=== PATIENT | male | born 1955 | race Caucasian/White ===

== ENCOUNTER 2020-12-15 13:15 | Outpatient (REF) | payer MEDICARE, SELFPAY ==
--- NOTE | 2020-12-15 | US_ITS ---
EXAMINATION: US EXTRACRANIAL CAROTID DUPLEX, BILATERAL CLINICAL INFORMATION: Multiple cerebral infarcts. COMPARISON: None TECHNIQUE: Real-time ultrasound and Doppler techniques (integrating B-mode 2-D vascular images, Doppler spectral analysis and color-flow Doppler imaging) were utilized to interrogate the extracranial carotid arteries, the vertebral arteries and proximal subclavian arteries bilaterally. The degree of stenosis is determined by criteria similar to NASCET. FINDINGS: Right Side: 1. There is a small amount of atherosclerotic plaque seen in the bifurcation/proximal ICA region. 2. The common carotid artery PSV proximally is 199 cm/s and distally 141 cm/s. 3. The proximal internal carotid artery velocities are 163 cm/s systolic and 22.6 cm/s diastolic. 4. The proximal external carotid artery PSV is 179 cm/s. 5. The vertebral artery shows antegrade flow. 6. The subclavian artery waveforms are normal, the velocity is elevated at 260 cm/s. Left Side: 1. There is a small amount of atherosclerotic plaque seen in the bifurcation/proximal ICA region. 2. The common carotid artery PSV proximally is 148 cm/s and distally 138 cm/s. 3. The proximal internal carotid artery velocities are 83.3 cm/s systolic and 15.7 cm/s diastolic. 4. The proximal external carotid artery PSV is 175 cm/s. 5. The vertebral artery shows antegrade flow. 6. The subclavian artery waveforms are normal, the velocity is elevated at 221 cm/s. US/US carotid duplex BI IMPRESSION: 1. RIGHT: Moderate, hemodynamically significant stenosis of the proximal right internal carotid artery corresponding to a 50-79% stenosis by velocity criteria. 2. LEFT: Minimal, non-hemodynamically significant stenosis of the proximal left internal carotid artery corresponding to a 0-49% stenosis by velocity criteria. 3. There are relatively elevated velocities within the proximal bilateral common carotid arteries as well as within the subclavian arteries which may be suggestive of disease at the level of the aortic arch. This could be further evaluated with CTA as warranted.
== END 2020-12-15 13:16 | disposition home or self-care (01) ==
LOC: HO.US 13:15
PROVIDERS: PCP Internal Medicine; Visit Provider Psychiatry & Neurology Neurology
DX: I65.21 Occlusion and stenosis of right carotid artery (principal)
CPT/HCPCS: 93880

== ENCOUNTER 2024-12-23 14:13 | Outpatient (REF) | payer MEDICARE, SELFPAY ==
--- OUTSIDE RECORDS SUMMARY | 2024-12-23 15:12 | XMS_ITS | Clinical Summary ---
Author Organization [facility] Address [address] [place] [address] Phone Care Team Providers Care Window Caser Name Role Phone Donna Tirado Primary Care Provider + Allergies Active Allergy Reactions Criticality Noted Date Comments Atorvastatin Pain 04/08/2009 Myalgia and Joint Pain Medications ketoconazole (NIZORAL) 2 % shampoo USE TO SHAMPOO HAIR/SCALP DIRECTED 1 Active cholecalciferol (VITAMIN D-3) 25 mcg (1,000 unit) capsule Take 1 Cap by mouth daily. Active aspirin 81 mg chewable tablet Take 81 mg by mouth daily. Active escitalopram (LEXAPRO) 10 mg tabletIndicatio ns:Anxiety and depression Take 1 tablet (10 mg total) by mouth 1 (one) time each day. 90 each 1 4 Active methylphenidate 36 mg ER tablet Take 1 tablet (36 mg total) by mouth 2 (two) times a day. Max Daily Amount: 72 mg 56 tablet 5 Active methylphenidate 36 mg ER tablet Take 1 tablet (36 mg total) by mouth 2 (two) times a day. Max Daily Amount: 72 mg 56 tablet 4 12/05/19 25 Discontinu ed(Reorder ) Active Problems Problem Noted Date Diagnosed Date CKD (chronic kidney disease), stage III 08/13/20 24 Prostate cancer 10/18/2021 Overview (08/13/2024): adenocarcinoma via bx left prostate dr. Olivier ADD (attention deficit disorder) 02/20/2018 Hyperlipidemia 02/20/2018 Vitamin D deficiency 02/16/2017 Psoriasis 11/07/2016 NeuromaJeet's 08/10/2015 Tinea cruris 08/10/2015 Insomnia 02/09/2015 Polyp of sigmoid colon 02/09/2015 Anxiety and depression 02/03/2015 Tubular adenoma 07/12/2011 Overview (08/13/2024): Comments: dr malloy Immunizations Name Administration Dates Next Due Influenza trivalent, 0.5mL ( Fluzone High-dose) 65yo and older 08/09/2022 Hupu SARS-CoV-2 COVID-19, mRNA, LNP-S, preservative free 02/10/2022,03/04/2021,02/10/2021 Surgical History Surgery Date Site/Laterality Comments KNEE ARTHROSCOPY -2005 Left PROCEDURE: NC ARTHROSCOPY AID TX SPINE&/FX KNEE W/O FIXJ OTHER SURGICAL HISTORY -2013 PROCEDURE: NC CURTG/CAUT ANAL FISSURE W/DILAT SPHNCTR SPX 1ST OTHER SURGICAL HISTORY 07/15/2019 Right PROCEDURE: NC LAPAROSCOPY NEPHRECTOMY W/PARTIAL URETERECT; COMMENT: donated - done [facility] Dr. 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 Olivier Family History Medical History Relation Name Comments Other: kidney disease Sister Relation Name Status Comments Sister Alive Social History Tobacco Use Types Packs/Day Years Used Date Smoking Tobacco: Former Cigarettes 1 10 0 11/14/1969 - 11/14/1979 Smokeless Tobacco: Never Alcohol Use Standard Drinks/Week Comments Yes 0 (1 standard drink = 0.6 oz pur e alcohol) Sex and Gender Information Value Date Recorded Sex Assigned at Not on file Legal Sex Male 5:16 AM EST Gender Identity Not on file Sexual Orientation Not on file Obstetrics History Last Filed Vital Signs Vital Sign Reading Time Taken Comments Blood Pressure 112/82 09/19/2024 2:40 PM EST Pulse 80 09/19/2024 2:40 PM EST Temperature 36.4 ??C (97.5 ??F) 09/19/2024 2:40 PM ES T Respiratory Rate - - Oxygen Saturation 98% 09/19/2024 2:40 PM EST Inhaled Oxygen Concentration - - Weight 76.9 kg (169 lb 9.6 oz) 09/19/2024 2:40 P M EST Height 182.9 cm (6') 09/19/2024 2:40 PM EST Body Mass Index 23 09/19/2024 2:40 PM EST Plan of Treatment Upcoming Encounters Date Type Department Care Team (Late st Contact Info) Description 01/19/2025 1:00 PM EDT Office Visit Internal Medicine - [place] [address] [place] [id number] Donna Tirado PA [address] [place] [address] Health Maintenance Due Date Last Done Comments Pneumococcal Vaccine: 50+ Years (1 of 2 - PCV) 1961 DTaP,Tdap,and Td Vaccines (1 - Tdap) 1974 Zoster Vaccines (1 of 2) 1974 Abdominal Aortic Aneurysm (AAA) Screen 10/15/2022 Depression Screening 10/15/2022 Falls Risk Assessment 10/15/2022 Hepatitis C Screening 10/15/2022 Medicare Annual Wellness Visit 10/15/2022 Social Influencers of Health Screening 10/15/2022 COVID-19 Vaccine ( season) 2024 08/09/2022, 02/10/2022, 03/04/2021, Additional history exists Influenza Vaccine (#1) 2024 08/09/2022 Colorectal Cancer Screening: Colonoscopy 08/01/2027 08/01/2017 Cholesterol Screening (Lipid Panel) 06/30/2029 06/30/2024, 06/30/2024 RSV Immunization Patients 60+ Years Old (1 - 1-dose 75+ series) 2030 HIB Vaccines Aged Out No longer eligi ble based on patient's age to complete this topic HPV Vaccines Aged Out No longer eligi ble based on patient's age to complete this topic Hepatitis A Vaccines Aged Out No long er eligible based on patient's age to complete this topic Hepatitis B Vaccines Aged Out No long er eligible based on patient's age to complete this topic IPV Vaccines Aged Out No longer eligi ble based on patient's age to complete this topic MMR Vaccines Aged Out No longer eligi ble based on patient's age to complete this topic Meningococcal ACWY Vaccine Aged Out N o longer eligible based on patient's age to complete this topic RSV Immunization Patients Under 20 months Aged Out No longer eligible based on patient's age to complete this topic Varicella Vaccines Aged Out No longer eligible based on patient's age to complete this topic Procedures Procedure Name Priority Date/Time Associated Diagnosis Comments PROSTATE SPECIFIC ANTIGEN SCREEN Routine 10/23/2024 12:23 PM EST Malignant neoplasm of prostate (CMS/HCC) LIPID PANEL Routine 06/30/2024 HM COLONOSCOPY Routine 08/01/2017 from Last 3 Months or Most Recently Relevant to Health Maintenance Results * (ABNORMAL) Prostate specific antigen screen (10/23/2024 12:23 PM EST) PSA 4.07(H) 0.00 - 4.00 ng/mL LAB CHEMISTRY METHOD 10/23/2024 2:30 PM EST [facility] Blood Venous blood specimen / Unknown Venipuncture / Unknown 10/23/2024 12:23 PM EST 10/23/2024 12:23 PM EST Narrative [facility] - 10/23/2024 2:30 PM EST The Siemens Advia Centaur Chemiluminescent Immunoassay is used. Results obtained with different assay methods or kits cannot be used interchangeably. Results cannot be interpreted as absolute evidence of the presence or absence of malignant disease. Hardy Christine MD LAB BLOOD ORDERABLES Final Resu lt [facility] ([facility]) [facility] [address] [place] [address], * (ABNORMAL) Lipid panel (06/30/2024) LDL/HDL Ratio 5(A) 0 - 4 Triglycerides 201(A) 0 - 150 mg/dL Cholesterol 212(A) 0 - 200 mg/dL HDL 45 >=40 mg/dL LDL Cholesterol 127(A) 0 - 100 mg/dL Blood Venous blood specimen / Unknown Historical Provider LAB BLOOD ORDERABLES Kathy l Result * Colonoscopy (08/01/2017) Colonoscopy no interpretation , abstracted Anatomical Region Laterality Modality Other Historical Provider HEALTH MAINTENANCE Final Result from Last 3 Months or Most Recently Relevant to Health Maintenance Insurance [facility] MEDICARE Care Teams Window Caser Relationship Specialty Start Date End Date Donna Tirado PA [address] [place] [address] PCP - General Internal Medicine 04/06/20
--- OUTSIDE RECORDS SUMMARY | 2024-12-23 15:12 | XMS_ITS | Clinical Summary ---
Author Organization [facility] Address [address] [place] [address] Phone Care Team Providers Care Undergraduate Intern Name Role Phone Andry Cohen MD Primary Care Provider [phone] Allergies Active Allergy Reactions Criticality Noted Date Comments Atorvastatin 01/08/2023 Other reaction(s): muscle aches Medications rosuvastatin (CRESTOR) 10 MG tablet 10/20/2022 Active Concerta 36 MG CR tablet 36 mg in the morning and 36 mg in the evening. 01/03/2023 Active escitalopram (LEXAPRO) 5 MG tablet Take 5 mg by mouth 1 (one) time each day 12/18/2022 Active aspirin (ST SARIAH) 81 MG EC tablet Take 81 mg by mouth 1 (one) time each day Active Multiple Vitamin (multivitamin) tablet Take 1 tablet by mouth 1 (one) time each day Active nitrofurantoin (MACRODANTIN) 100 MG capsule Take by mouth 4 (four) times a day Active Active Problems Problem Noted Date Diagnosed Date Chronic kidney disease stage 3 07/19/2023 0 07/19/2023 Stage 3a chronic kidney disease 07/19/2023 Malignant neoplasm of prostate 12/07/2021 History of nephrectomy 07/15/2019 Donor nephrectomy 04/25/2018 Hyperlipidemia 02/20/2018 07/19/2023 Attention-deficit hyperactiv ity disorder predominantly inattentive type 02/20/2018 07/19/2023 Insomnia 02/09/2015 07/19/2023 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 201307/19/2023 Immunizations Name Administration Dates Next Due Influenza Split High Dose Pr eservative Free IM 08/09/2022 Moderna SARS-COV-2 08/09/2022 Pfizer SARS-COV-2 02/10/2022,03/04/2021,02/11/20 21 Social History Tobacco Use Types Packs/Day Years Used Date Smoking Tobacco: Former Tobacco Cessation:Counseling Given: Not Answered Alcohol Use Standard Drinks/Week Comments Yes 0 (1 standard drink = 0.6 oz pur e alcohol) Sex and Gender Information Value Date Recorded Sex Assigned at Not on file Legal Sex Male 4:30 PM EST Gender Identity Not on file Sexual Orientation Not on file Last Filed Vital Signs Vital Sign Reading Time Taken Comments Blood Pressure 130/79 07/17/2024 3:09 PM EDT Pulse 72 07/17/2024 3:09 PM EDT Temperature - - Respiratory Rate - - Oxygen Saturation 97% 07/17/2024 3:09 PM EDT Inhaled Oxygen Concentration - - Weight 78.4 kg (172 lb 12.8 oz) 07/17/2024 3:09 PM EDT Height 180.3 cm (5' 11 ) 07/17/2024 3:09 PM EDT Body Mass Index 24.1 07/17/2024 3:09 PM EDT Plan of Treatment Upcoming Encounters Date Type Department Care Team (Late st Contact Info) Description 05/04/2025 1:00 PM EDT Office Visit [facility] [address] [place] [address] Denis Mathur MD [address] [facility] [address] [place] [address] Health Maintenance Due Date Last Done Comments Pneumococcal Vaccine: 65+ Ye ars (1 of 2 - PCV) 1961 Colorectal Cancer Screening: Annual FOBT 2004 Colorectal Cancer Screening: Colonoscopy 2004 Colorectal Cancer Screening: Sigmoidoscopy 2004 Influenza Vaccine (#1) 2024 08/09/2022 Hepatitis B Vaccine Aged Out No longe r eligible based on patient's age to complete this topic Insurance [facility] MEDICARE [facility] MEDICARE Member Subscriber Plan / Payer (Ef fective 2020-) Name:Octavio Miranda Relation to Subscriber:Self Name:Ruben Octavio Payer ID:[id number] (NAIC) Type:Not on file Address: [place] [phone] Care Teams Undergraduate Intern Relationship Specialty Start Date End Date Andry Cohen MD [address] [place] [id number] PCP - General Internal Medicine 07/26/23
[2024-12-23 16:19] LABS: Vitamin B12 190 pg/mL (200-900)
[2024-12-23 17:07] LABS: Erythrocyte Sedimentation Rate 4 MM/HR (0-15)
[2024-12-25 02:49] LABS: Lyme Abs Screen <0.90 index
== END 2024-12-23 14:14 | disposition home or self-care (01) ==
LOC: HO.LAB 14:13
PROVIDERS: PCP Physician Assistant; Visit Provider Psychiatry & Neurology Neurology
DX: I63.50 Cerebral infarction due to unspecified occlusion or stenosis of unspecified cerebral artery (principal)
CPT/HCPCS: 36415; 82607; 85652; 86617; 86618

== ENCOUNTER 2025-01-01 13:12 | Outpatient (AMB) | payer MEDICARE, SELFPAY ==
--- NOTE | 2025-01-01 13:14 | A.OFFPC_ITS ---
Vital Signs 01/01/25 13:27 Height 6 ft Weight 172 lb BMI 23.3 BP 118/62 Blood Pressure Location Rt brachial Position Sitting Respiration 16 Pulse 59 Pulse Source Pulse Oximeter Temp 97.8 F Temp Source Oral Pulse Oximetry (%) 98 Oxygen Delivery Method Room Air Intake Visit Reasons: est care Intake Note: patient here for new patient visit. memory issues per daughter. [employer] Required: No Allergies No Known Allergies Allergy (Verified 01/01/25 13:40) Medication List - Last Reconciled 01/01/25 by Damián Palacios CNP escitalopram oxalate mg PO DAILY methylphenidate HCl ER mg PO QAM topiramate mg PO DAILY Tobacco use date assessed: 01/01/25 Fall risk assessment: No Falls in past year Last assessed Fall Risk: 01/01/25 Dental Screening Dental Screen Date: 01/01/25 Did you have a dental visit in the last 12 months?: Yes Did you have a dental problem in the last 6 months where you did not have access to dental care?: No Was dental information given to patient?: Patient has dentist HPI HPI Comments History of Present Illness Details 69-year-old male, accompanied by her lilly romeo, presents to establish care Prior PCP? - [facility] Last office - Last month Last CPE - Last year Routine labs - Long time ago Acute issue(s) - Depression and anxiety: On escitalopr am 10 mg daily. He is not followed by a psychiatrist or therapist - ADHD: On methylphenidate 36 mg daily - Generalized headaches for several yea rs: On topiramate 25 mg daily. Followed by neurology - Memory loss: Followed by neurology - Prostate Cancer: Followed by urology - Kidney disease: Followed by nephrology - Myopia: Wears prescription glasses Past Medical History - Headaches, kidney disease, prostate ca ncer, stroke, psoriasis, anxiety, depression, ADHD, memory loss, myopia Surgical History - Nephrectomy of right kidney (donated) Family History - Mom: Depression - Dad: Depression Social History - Former smoker, h/o 1ppd x 15 years, qu it over 50 yrs ago. Vape cannabis every night. Drinks 6-8 oz vodka weekly. Smoke cannabis at times - Has not been making healthy dietary ch oices. Active but does not active. Generally sleep well Health maintenance - Last eye exam was 2 years ago. Referre d to ophthalmology for routine eye care - Last dental visit was over 2-3 months ago. He gets routine dental care every 6 months - Last tetanus vaccine was more than 10 years ago; He will receive the Tdap vaccine at next visit - Up-to-date on the flu vaccine - Unsure of shingles and pneumonia vacc loc. His daughter will review his immunization record and will update as needed. Shingles and pneumonia vaccines recommended; he may get vaccinated from his local pharmacy - Pneumonia vaccines - Last colonoscopy was 10 years ago. Ref erred to [facility] gastroenterology for colonoscopy Specialists - Dr Umana, [facility] Neurology - Dr. Maykel Olivier, [facility] - Denis Mathur, [facility] Neuphrology [facility] Medical History (Updated 01/01/25 @ 14:33 by Damián Palacios CNP) Depression Psoriasis Memory loss Headache Prostate cancer Kidney disease Stroke (cerebrum) Surgical History (Updated 01/01/25 @ 13:31 by Heena Ngo) History of kidney donation Family History (Updated 01/01/25 @ 16:32 by Heena Ngo) Paternal Grandfather No problems noted. Mother FH: mental illness Father FH: mental illness Social History (Updated 01/01/25 @ 13:32 by Heena Ngo) Housing: Apartment Patient Tobacco Use Status: Never used Tobacco e-Cigarette/Vaping Use: Currently Using Second Hand Smoke Exposure: No Substance Use Type: Marijuana service: No Current occupational status: retired Current occupational exposures/hazards: No Cognitive needs: No Hearing needs: No Vision needs: Yes Questionnaire PHQ-9 Over the last 2 weeks, how often have you been bothered by any of the following problems? 1. Little interest or pleasure in doing things: several days 2. Feeling down, depressed, or hopeless: several days 3. Trouble falling or staying asleep, or sleeping too much: several days 4. Feeling tired or having little energy: several days 5. Poor appetite or overeating: several days 6. Feeling bad about yourself - or that you are a failure or have let yourself or your family down: not at all 7. Trouble concentrating on things, such as reading the newspaper or watching television: not at all 8. Moving or speaking so slowly that other people could have noticed. Or the opposite - being so fidgety or restless that you have been moving around a lot more than usual: several days 9. Thoughts that you would be better off or of hurting yourself in some way: not at all Total score: 6 Depression Screening Interpretation: Positive Depression Screening Follow-up: Existing condition and In treatment Depression Screening Done: Yes 98691 - PHQ-9 Billing: Yes Source: Developed by Drs. Brando Gee, Phyllis Alberts, James Turk and colleagues, with an educational edgardo from [employer]. Thrive Questionnaire Date Thrive assessed: 01/01/25 I am a: Patient What is your living situation today?: I have a steady place to live Within the past 12 months, did the food you bought not last and you didn't have the money to get more?: Never true Within the past 12 months, did you worry whether your food would run out before you got money to buy more?: Never true Do you have trouble paying for medicines?: No Do you have trouble getting transportation to medical appointments?: No Do you have trouble paying your heating and electricity bill?: No Do you have trouble taking care of your child, family member or friend?: No Do you have trouble with day-to-day activities such as bathing, preparing meals, shopping, managing finances, etc.?: No Are you currently unemployed and looking for a job?: No Are you interested in more education?: No Please select the resources that you would like help with: None Currently or been in a relationship where the following occur: No concerns reported THRIVE Score: 0 AUDIT C Alcohol Use Questionnaire (AUDIT-C) 1. How often do you have a drink containing alcohol?: 2-4 times a month 2. How many drinks containing alcohol do you have on a typical day when you are drinking?: 1 or 2 3. How often do you have six or more drinks on one occasion?: Never Total Score: 2 Score Reviewed/Action Taken: Yes PITER-7 AMB Questionnaire PITER-7 Date PITER - 7 assessed: 01/01/25 Feeling nervous, anxious, or on edge: 0 = Not at all Not being able to stop or control worryin = Not at all Worrying too much about different things: 0 = Not at all Trouble relaxin = Not at all Being so restless that it is hard to sit still: 0 = Not at all Becoming easily annoyed or irritable: 0 = Not at all Feeling afraid as if something awful might happen: 0 = Not at all Total PITER-7 score (0-4 normal; 5-9 mild; 10-14 moderate; 15-21 severe): 0 Source: Developed by Drs. Brando Gee, Phyllis Alberts, James Turk and colleagues, with an educational edgardo from [employer]. PITER-7 Assessment Billing PITER-7 Assessment Tool: PITER-7 Assessment 48604 Review of Systems Const Details: Denies chills, Denies fatigue, Denies fever(s), Denies headache(s) and Denies weakness HEENT Denies change in vision, Denies dizziness, Denies headache(s), Denies hearing loss, Denies nasal congestion, Denies sinus pain, Denies sinus pressure and Denies sore throat Card Denies chest pain, Denies lightheadedness, Denies dyspnea and Denies other (palpitations) Resp Denies cough, Denies dyspnea and Denies wheezing GI Denies abdominal pain, Denies melena, Denies hematochezia, Denies change in bowel habits, Denies dyspepsia and Denies nausea Denies hematuria and Denies dysuria Musc Denies abnormal gait, Denies myalgias, Denies arthralgias, Denies numbness and Denies tingling Skin/Breast Denies rash, Denies unusual bruising and Denies wounds Neuro Denies abnormal gait, Denies dizziness, Denies headache(s), Denies memory loss, Denies numbness, Denies Sensory deficit (Neuro), Denies tingling and Denies weakness Psych Denies anxiety, Denies depression and Denies memory loss Endo Denies cold intolerance, Denies fatigue, Denies heat intolerance, Denies polydipsia and Denies polyuria Andrew/Lymph Denies easy bleeding and Denies easy bruising Aller/Immun Denies wheezing Physical exam (Primary Care) Vital Signs: Last Vital Signs Temp 97.8 F 01/01/25 13:27 Pulse 59 01/01/25 13:27 Resp 16 01/01/25 13:27 BP 118/62 01/01/25 13:27 Pulse Ox 98 01/01/25 13:27 Oxygen Delivery Method Room Air 01/01/25 13:27 BMI result Body Mass Index 23.3 Tobacco/Smoking Status: Tobacco use Status Tobacco use date assessed 01/01/25 01/01/25 13:26 Patient Tobacco Use Status Never used Tobacco 01/01/25 13:26 e-Cigarette/Vaping Use Currently Using 01/01/25 13:26 PHQ-9: PHQ-9 Score PHQ-9: Total score 6 01/01/25 16:48 Depression Screening Interpretation: Positive Depression Screening Follow-up: Existing condition and In treatment Thrive Assessment: Date of Thrive Assessment Date Thrive assessed 01/01/25 01/01/25 13:16 Currently or been in a relationship where the following occur: No concerns reported Const Other: General: no acute distress, well developed, alert and awake Nutritional Appearance: well nourished Orientation/consciousness: patient oriented x3 HENMT Head: Yes normocephalic and Yes atraumatic Ears: hearing grossly normal bilaterally and TM's normal bilaterally General nose exam: Normal external nose present and Normal nares present Mouth: Normal oral and palatal mucosa present and moist mucous membranes Teeth and gingiva: dentition normal Throat: Yes oropharynx normal Eyes Pupils: Equal, round and reactive pupils present and Pupil accommodation reflex normal EOM: EOMs intact bilaterally Neck Neck: Yes normal visual inspection, Yes no lymphadenopathy and Yes trachea midline Thyroid: Thyroid normal Carotids: no bruits Lymphatic: no lymphadenopathy noted Chest Chest palpation & inspection: normal inspection of the chest Resp Effort & Inspection: normal respiratory effort Auscultation: clear to auscultation bilaterally Cardio Rate: regular rate Rhythm: regular rhythm Heart sounds: S1 normal heart sound present, S2 normal heart sound present, no gallops, no murmurs and no rubs Bruits: no abdominal aortic bruits and no carotid bruits GI Palpation (GI): No Abdominal aortic bruit present, Soft to palpation, nontender, No hepatosplenomegaly present and No Rebound tenderness present Auscultation: normal bowel sounds General: Yes no CVA tenderness Back/Spine/Pelvis Back: no CVA tenderness Cervical Spine: cervical ROM normal and No Cervical spine tenderness Thoracic/Lumbar Spine: thoraco-lumbar ROM normal, No pain with thoraco-lumbar ROM, No thoracic spinal tenderness and No lumbar spinal tenderness Skin General: warm and dry. Normal skin color. Normal skin turgor Lesions: no lesions Rashes: no rashes Trauma: no lacerations or abrasions Wounds: no wounds Nails: normal Neuro General: patient oriented x3, gait normal and CN's II-XI intact bilaterally Cranial nerves: Yes Equal, round and reactive pupils present Cognition (Neuro): normal cognition Gait exam (Neuro): Normal gait present Motor exam (neuro): 5/5 motor strength present throughout Sensory Exam: No Sensory deficit (Neuro) Deep tendon reflexes (DTR's): Right patellar reflex intensity grade: 2+ and Left patellar reflex intensity grade: 2+ Extrem General: Yes normal to inspection, No edema and No calf tenderness Psych Appearance: grossly normal Affect: normal affect Attitude: cooperative Thought process: Normal thought process present Coding Level of Care Code New Pt Level 3 (09958) New Pt Prev Care >65yr (27240) Diagnoses Normal physical examination, routine Z00.00 Anxiety and depression F41.9; F32.A ADHD F90.9 Prostate cancer C61 Memory loss R41.3 Stroke (cerebrum) I63.9 Myopia H52.10 Headache R51.9 Poor nutrition E63.9 Colon cancer screening Z12.11 Laboratory tests ordered as part of a complete physical exam (CPE) Z00.00 Additional Codes PITER-7 Assessment Billing - PITER-7 Assessment Tool: PITER-7 Assessment 58248 ([id number]) PHQ-9 - 80508 - PHQ-9 Billing: Yes ([id number]) Assessment & Plan Assessment & Plan (1) Normal physical examination, routine: Code(s): Z00.00 - Encounter for general adult medical examination without abnormal findings Category: Medical Plan: No significant functional limitations noted. Continue current treatment regimen. Advised to get lab work done and follow-up for telehealth visit 2-3 weeks for labs review. Return sooner with symptoms or concerns. Verbalized understanding and agreed with treatment plan. (2) Anxiety and depression: Code(s): F41.9 - Anxiety disorder, unspecified; F32.A - Depression, unspecified Category: Medical Plan: Continue to take escitalopram 10 mg daily. Routine exercise encouraged. We will continue to monitor. Follow-up with worsening or new symptoms. Verbalized understanding and agreed with the plan. (3) ADHD: Code(s): F90.9 - Attention-deficit hyperactivity disorder, unspecified type Category: Medical Plan: Continue to take methylphenidate 36 mg daily. Routine exercise encouraged. We will continue to monitor. Follow-up with worsening or new symptoms. Verbalized understanding and agreed with the plan. (4) Prostate cancer: Code(s): C61 - Malignant neoplasm of prostate Category: Medical Plan: Will check PSA level. Followed by urology. (5) Memory loss: Code(s): R41.3 - Other amnesia Category: Medical Plan: Reports history of memory loss. He is alert and oriented x4. No focal neuro deficit. Followed by nephrology. Return with symptoms or concerns. Verbalized understanding and agreed with the plan. (6) Stroke (cerebrum): Code(s): I63.9 - Cerebral infarction, unspecified Category: Medical Plan: History of CVA. No focal neuro deficit. Followed by nephrology. (7) Myopia: Code(s): H52.10 - Myopia, unspecified eye Category: Medical Plan: Wears prescription glasses. Last eye exam was 2 years ago. Referred to ophthalmology for routine eye care. (8) Headache: Code(s): R51.9 - Headache, unspecified Category: Medical Plan: Continue to take topiramate 25 mg daily. Followed by [facility] neurology. (9) Poor nutrition: Code(s): E63.9 - Nutritional deficiency, unspecified Category: Medical Plan: He makes on healthy dietary choices. He is active but does not exercise. Healthy diet and routine exercise encouraged. Will referred to a exec. creative director/dietitian as needed. Verbalized understanding and agreed with the treatment plan. (10) Colon cancer screening: Code(s): Z12.11 - Encounter for screening for malignant neoplasm of colon Category: Medical Plan: Last colonoscopy was 10 years ago. Referred to [facility] gastroenterology for a colonoscopy. (11) Laboratory tests ordered as part of a complete physical exam (CPE): Code(s): Z00.00 - Encounter for general adult medical examination without abnormal findings Category: Medical Plan: Fasting labs ordered as part of a complete physical exam. Advised to fast for at least 10 hours before getting labs drawn. May drink water Verbalized understanding and agreed with treatment plan. Orders: Orders Complete Blood Count Auto Diff 01/01/25 Z00.00 - Encounter for general adult medical examination without abnormal findings Comprehensive [place]. Panel Fast 01/01/25 Z00.00 - Encounter for general adult medical examination without abnormal findings Lipid Panel 01/01/25 Z00.00 - Encounter for general adult medical examination without abnormal findings Microalbumin, Random (w Creat) 01/01/25 Z00.00 - Encounter for general adult medical examination without abnormal findings PSA, Ultra Sensitive 01/01/25 Z00.00 - Encounter for general adult medical examination without abnormal findings Vitamin D 25-OH Total 01/01/25 Z00.00 - Encounter for general adult medical examination without abnormal findings TSH reflex Free T4 01/01/25 Z00.00 - Encounter for general adult medical examination without abnormal findings UA CC w/rflx Micro + Cult 01/01/25 Z00.00 - Encounter for general adult medical examination without abnormal findings Vitamin B12 and Folate 01/01/25 Z00.00 - Encounter for general adult medical examination without abnormal findings Referrals Gastroenterology Referral Z12.11 - Encounter for screening for malignant neoplasm of colon Ophthalmology Referral Z00.00 - Encounter for general adult medical examination without abnormal findings
[2025-01-01 13:27] VITALS: BP 118/62; PULSE 59; RESP 16; TEMP 36.6; O2SAT 98; BMI 23.3
--- OUTSIDE RECORDS SUMMARY | 2025-01-01 14:06 | XMS_ITS | Clinical Summary ---
Author Organization [facility] Address [address] [place] [address] Phone Care Team Providers Care Education Dean Name Role Phone Andry Cohen MD Primary Care Provider [phone] Allergies Active Allergy Reactions Criticality Noted Date [...] Visit [facility] [address] [place] [address] Denis Mathur MD [address] [facility] [address] [place] [address] Health Maintenance Due Date Last Done Comments Pneumococcal Vaccine: 65+ Ye ars (1 of 2 - PCV) 1961 Colorectal Cancer Screening: Annual FOBT 2004 Colorectal Cancer Screening: Colonoscopy 2004 Colorectal Cancer Screening: Sigmoidoscopy 2004 Influenza Vaccine (#1) 2024 08/09/2022 Hepatitis B Vaccine Aged Out No longe r eligible based on patient's age to complete this topic Insurance [facility] MEDICARE [facility] MEDICARE Member Subscriber Plan / Payer (Ef fective 2020-) Name:Octavio Miranda Relation to Subscriber:Self Name:Ruben Octavio Payer ID:[id number] (NAIC) Type:Not on file Address: [place] [phone] Care Teams Education Dean Relationship Specialty Start Date End Date Andry Cohen MD [address] [place] [id number] PCP - General Internal Medicine 07/26/23
--- OUTSIDE RECORDS SUMMARY | 2025-01-01 14:06 | XMS_ITS | Clinical Summary ---
Author Organization 175 [facility] Address 175 [place] [address] Phone Care Team Providers Care Durability Technician Name Role Phone Donna Tirado Primary Care [...] ( Fluzone High-dose) 65yo and older 08/09/2022 [employer] SARS-CoV-2 COVID-19, mRNA, LNP-S, preservative free 02/10/2022,03/04/2021,02/10/2021 Surgical History Surgery Date Site/Laterality Comments KNEE ARTHROSCOPY -2005 Left PROCEDURE: CT ARTHROSCOPY AID TX SPINE&/FX KNEE W/O FIXJ OTHER SURGICAL HISTORY -2013 PROCEDURE: CT CURTG/CAUT ANAL FISSURE W/DILAT SPHNCTR SPX 1ST OTHER SURGICAL HISTORY 07/15/2019 Right PROCEDURE: CT LAPAROSCOPY NEPHRECTOMY W/PARTIAL URETERECT; COMMENT: donated - done [facility] Dr. Stephenson Medical History Medical History Date [...] PM EDT Office Visit Internal Medicine - [place] [address] [facility] [address] [place] [phone] Donna Tirado PA [address] [facility] [address] [place] [address] Health Maintenance Due Date Last Done Comments DTaP,Tdap,and Td Vaccines (1 - Tdap) 1974 Pneumococcal Vaccine: 50+ Years (1 of 2 - PCV) 1974 Zoster Vaccines (1 of 2) 1974 [...] patient's age to complete this topic Meningococcal B Vacine Aged Out No lo nger eligible based on patient's age to complete [...] LAB CHEMISTRY METHOD 10/23/2024 2:30 PM EST [facility] Blood Venous blood specimen / Unknown Venipuncture / Unknown 10/23/2024 12:23 PM EST 10/23/2024 12:23 PM EST Narrative [facility] - 10/23/2024 2:30 PM EST The Siemens [employer]ia Centaur Chemiluminescent Immunoassay is used. Results obtained with different assay methods or kits cannot be used interchangeably. Results cannot be interpreted as absolute evidence of the presence or absence of malignant disease. Hardy Christine MD LAB BLOOD ORDERABLES Final Resu lt [facility] [address] [place] [address], * (ABNORMAL) Lipid panel (06/30/2024) LDL/HDL Ratio [...] Most Recently Relevant to Health Maintenance Insurance [employer] MEDICARE Care Teams Durability Technician Relationship Specialty Start Date End Date Donna Tirado PA [address] [address] PCP - General Internal Medicine 04/06/20
== END 2025-01-01 14:19 | disposition home or self-care (01) ==
PROVIDERS: PCP Nurse Practitioner Family; Visit Provider Nurse Practitioner Family
DX: Z00.00 Encounter for general adult medical examination without abnormal findings (principal); F41.9 Anxiety disorder, unspecified; Z86.73 Personal history of transient ischemic attack (TIA), and cerebral infarction without residual deficits; C61 Malignant neoplasm of prostate; F32.A Depression, unspecified; F90.9 Attention-deficit hyperactivity disorder, unspecified type; R41.3 Other amnesia; H52.10 Myopia, unspecified eye; R51.9 Headache, unspecified; E63.9 Nutritional deficiency, unspecified; Z12.11 Encounter for screening for malignant neoplasm of colon

== ENCOUNTER 2025-01-01 16:09 | Outpatient (REF) | payer MEDICARE, SELFPAY ==
--- NOTE | ~2025-01-01 | MR_ITS ---
EXAMINATION: MR BRAIN WITHOUT CONTRAST CLINICAL INFORMATION: Multiple cerebral infarctions. COMPARISON: None available. TECHNIQUE: MRI of the brain was obtained using routine sequences without contrast. FINDINGS: There are multiple infratentorial and supratentorial compartment scattered randomly distributed susceptibility signal foci. No acute intracranial hemorrhage, mass effect, midline shift, hydrocephalus or herniation. No restricted diffusion within the brain parenchyma. Bilateral multifocal patchy and confluent deep periventricular white matter and subcortical white matter hyperintense T2 FLAIR signal involving centrum semiovale and rivas radiata. Flow-void signal within the main vessels is normal. Sellar/suprasellar region demonstrated no signal abnormality or gross masses. Craniocervical junction is intact and normal. MR/MR head/brain wo con IMPRESSION: Old microhemorrhages. Consider hypertensive etiology versus cerebral amyloid angiopathy. No acute ischemia/stroke. Small vessel occlusive disease versus less likely demyelinating process. Electronically signed by: Tulio Vasquez MD 01/02/2025 09:48 AM EST
--- OUTSIDE RECORDS SUMMARY | 2025-01-01 16:48 | XMS_ITS | Clinical Summary ---
Author Organization 175 [facility] Address 175 [place] [address] Phone Care Team Providers Care Rcis Name Role Phone Donna Tirado Primary Care [...] ( Fluzone High-dose) 65yo and older 08/09/2022 [employer] SARS-CoV-2 COVID-19, mRNA, LNP-S, preservative free 02/10/2022,03/04/2021,02/10/2021 Surgical History Surgery Date Site/Laterality Comments KNEE ARTHROSCOPY -2005 Left PROCEDURE: IN ARTHROSCOPY AID TX SPINE&/FX KNEE W/O FIXJ OTHER SURGICAL HISTORY -2013 PROCEDURE: IN CURTG/CAUT ANAL FISSURE W/DILAT SPHNCTR SPX 1ST OTHER SURGICAL HISTORY 07/15/2019 Right PROCEDURE: IN LAPAROSCOPY NEPHRECTOMY W/PARTIAL URETERECT; COMMENT: donated - done [facility] Dr. Stephenson Medical History Medical History Date [...] PM EDT Office Visit Internal Medicine - [place] [address] [facility] [address] [place] [phone] Donna Tirado PA [address] [facility] [address] [place] [address] Health Maintenance Due Date Last Done Comments [...] LAB CHEMISTRY METHOD 10/23/2024 2:30 PM EST [facility] Blood Venous blood specimen / Unknown Venipuncture / Unknown 10/23/2024 12:23 PM EST 10/23/2024 12:[address] [facility] - 10/23/2024 2:30 PM EST The Siemens Advia Centaur Chemiluminescent Immunoassay is used. Results obtained with different assay methods or kits cannot be used interchangeably. Results cannot be interpreted as absolute evidence of the presence or absence of malignant disease. Hardy Christine MD LAB BLOOD ORDERABLES Final Resu lt [facility] [address] [place] [address], * (ABNORMAL) Lipid panel (06/30/2024) LDL/HDL Ratio [...] Maintenance Insurance [employer] Care Teams Rcis Relationship Specialty Start Date End Date Donna Tirado PA [address] [address] PCP - General Internal Medicine 04/06/20
--- OUTSIDE RECORDS SUMMARY | 2025-01-01 16:48 | XMS_ITS | Clinical Summary ---
Author Organization [facility] Address [address] [place] [address] Phone Care Team Providers Care Internal Medicine Specialist Name Role Phone Andry Cohen MD Primary Care Provider [phone] Allergies Active Allergy Reactions Criticality Noted Date [...] Visit [facility] [address] [place] [address] Denis Mathur MD [address] [facility] [address] [place] [address] Health Maintenance Due Date Last Done Comments Pneumococcal Vaccine: 65+ Ye ars (1 of 2 - PCV) 1961 Colorectal Cancer Screening: Annual FOBT 2004 Colorectal Cancer Screening: Colonoscopy 2004 Colorectal Cancer Screening: Sigmoidoscopy 2004 Influenza Vaccine (#1) 2024 08/09/2022 Hepatitis B Vaccine Aged Out No longe r eligible based on patient's age to complete this topic Insurance [facility] MEDICARE [facility] MED[employer] Member Subscriber Plan / Payer (Ef fective 2020-) Name:Octavio Miranda Relation to Subscriber:Self Name:Ruben Octavio Payer ID:[id number] (NAIC) Type:Not on file Address: [place] [phone] Care Teams Internal Medicine Specialist Relationship Specialty Start Date End Date Andry Cohen MD [address] [place] [id number] PCP - General Internal Medicine 07/26/23
== END 2025-01-01 16:10 | disposition home or self-care (01) ==
LOC: HO.MRI 16:09
PROVIDERS: Visit Provider Psychiatry & Neurology Neurology
DX: I63.50 Cerebral infarction due to unspecified occlusion or stenosis of unspecified cerebral artery (principal)
CPT/HCPCS: 70551

== ENCOUNTER → 2025-01-01 16:17 | Outpatient (BNV) | payer MEDICARE, SELFPAY | PROVIDERS: Visit Provider Radiology Diagnostic Radiology | DX: I63.89 Other cerebral infarction (principal) | CPT/HCPCS: 70551 ==

== ENCOUNTER 2025-01-19 12:23 | Outpatient (REF) | payer MEDICARE, SELFPAY ==
[2025-01-19 12:40] LABS: MANUAL DIFF FLAG NO
[2025-01-19 13:29] LABS: Basophils Absolute Auto 0.1 X10*3/uL (0.0-0.2); Basophils Percent Auto 1.5 % (0-2); Eosinophils Absolute Auto 0.1 X10*3/uL (0.0-0.4); Eosinophils Percent Auto 1.5 % (0-4); Hematocrit 46.8 % (42.0-52.0); Hemoglobin 15.7 g/dl (14.0-18.0); Imm Gran Abs Auto 0.01 X10*3/uL (0.00-0.03); Imm Gran Pct Auto 0.2 % (0.0-0.4); Lymphocytes Percent Auto 50.9 % (20-40); Mean Corpuscular HGB Conc 33.5 g/dl (31.0-36.0); Mean Corpuscular Hemoglobin 30.7 pg (27.0-33.0); Mean Corpuscular Volume 91.4 fL (80.0-98.0); Mean Platelet Volume 10.3 fL (9.4-12.4); Monocytes Absolute Auto 0.5 X10*3/uL (0.1-1.2); Monocytes Percent Auto 12.5 % (2-11); Neutrophils Absolute Auto 1.3 x10*3/uL (2.0-8.3); Neutrophils Percent Auto 33.4 % (45-73); Platelet Count 315 X10*3/uL (160-400); Red Blood Count 5.12 X10*6/uL (4.60-5.80); Red Cell Distribution Width 13.1 % (11.0-16.0)
--- OUTSIDE RECORDS SUMMARY | 2025-01-19 13:54 | XMS_ITS | Clinical Summary ---
Author Organization [facility] Address [address] [place] [address] Phone Care Team Providers Care Vascular Ultrasound Technologist Name Role Phone Andry Cohen MD Primary Care Provider [phone] Allergies Active Allergy Reactions Criticality Noted Date [...] Visit [facility] [address] [place] [address] Denis Mathur MD [address] [facility] [address] [place] [address] Health Maintenance Due Date Last Done Comments Pneumococcal Vaccine: 65+ Ye ars (1 of 2 - PCV) 1961 Colorectal Cancer Screening: Annual FOBT 2004 Colorectal Cancer Screening: Colonoscopy 2004 Colorectal Cancer Screening: Sigmoidoscopy 2004 Influenza Vaccine (#1) 2024 08/09/2022 Hepatitis B Vaccine Aged Out No longe r eligible based on patient's age to complete this topic Insurance [employer] MED[employer] Member Subscriber Plan / Payer (Ef fective 2020-) Name:Octavio Miranda Relation to Subscriber:Self Name:Ruben Octavio Payer ID:[id number] (NAIC) Type:Not on file Address: [place] [phone] Care Teams Vascular Ultrasound Technologist Relationship Specialty Start Date End Date Andry Cohen MD [address] [place] [address] PCP - General Internal Medicine 07/26/23
--- OUTSIDE RECORDS SUMMARY | 2025-01-19 13:54 | XMS_ITS | Clinical Summary ---
Author Organization 175 [facility] Address 175 [place] [address] Phone Care Team Providers Care Emergency Planning And Response Manager Name Role Phone Donna Tirado Primary Care Provider + Allergies Active Allergy Reactions Criticality Noted Date Comments Atorvastatin Pain 04/08/2009 Myalgia and Joint Pain Medications ketoconazole (NIZORAL) 2 % shampoo USE TO SHAMPOO HAIR/SCALP DIRECTED 10/27/2011 Active cholecalciferol (VITAMIN D-3) 25 mcg (1,000 unit) capsule Take 1 Cap by mouth daily. Active aspirin 81 mg chewable tablet Take 81 mg by mouth daily. Active escitalopram (LEXAPRO) 10 mg tabletIndicatio ns:Anxiety and depression Take 1 tablet (10 mg total) by mouth 1 (one) time each day. 90 each 1 09/19/2024 Active methylphenidate 36 mg ER tablet Take 1 tablet (36 mg total) by mouth 2 (two) times a day. Max Daily Amount: 72 mg 56 tablet 12/06/2024 Active Active Problems Problem Noted Date Diagnosed Date CKD (chronic kidney disease), stage III 08/13/20 24 Prostate cancer 10/18/2021 Overview (08/13/2024): adenocarcinoma via bx left prostate dr. 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 Tinea cruris 08/10/2015 Insomnia 02/09/2015 Polyp of sigmoid colon 02/09/2015 Anxiety and depression 02/03/2015 Tubular adenoma 07/12/2011 Overview (08/13/2024): Comments: dr malloy Immunizations Name Administration Dates Next Due Influenza trivalent, 0.5mL ( Fluzone High-dose) 65yo and older 08/09/2022 [employer] SARS-CoV-2 COVID-19, mRNA, LNP-S, preservative free 02/10/2022,03/04/2021,02/10/2021 Surgical History Surgery Date Site/Laterality Comments KNEE ARTHROSCOPY -2005 Left PROCEDURE: [place] ARTHROSCOPY AID TX SPINE&/FX KNEE W/O FIXJ OTHER SURGICAL HISTORY -2013 PROCEDURE: [place] CURTG/CAUT ANAL FISSURE W/DILAT SPHNCTR SPX 1ST OTHER SURGICAL HISTORY 07/15/2019 Right PROCEDURE: [place] LAPAROSCOPY NEPHRECTOMY W/PARTIAL URETERECT; COMMENT: donated - done [facility] Dr. Stephenson Medical History Medical History Date Comments ADD (attention deficit disorder) 02/20/2018 DX:ADD (attention deficit disorder) Hyperlipidemia 02/20/2018 DX:Hyperlipidemi a Neuroma, Jeet's 08/10/2015 DX:Neuroma, Mo rton's Polyp of sigmoid [...] 09/19/2024 2:40 PM EST Plan of Treatment Health Maintenance Due Date Last Done Comments [...] Diagnosis Comments PROSTATE SPECIFIC ANTIGEN SCREEN Routine 01/14/2025 4:28 PM EST Malignant neoplasm of prostate (CMS/HCC) PROSTATE SPECIFIC ANTIGEN SCREEN Routine 10/23/2024 12:23 PM EST Malignant neoplasm of prostate (CMS/HCC) LIPID PANEL Routine 06/30/2024 HM COLONOSCOPY Routine 08/01/2017 from Last 3 Months or Most Recently Relevant to Health Maintenance Results * (ABNORMAL) Prostate specific antigen screen (01/14/2025 4:28 PM EST) Only the most recent of2 resultswithin the time period is included. PSA 5.39(H) 0.00 - 4.00 ng/mL LAB CHEMISTRY METHOD 01/14/2025 6:35 PM EST [facility] Blood Venous blood specimen / Unknown Venipuncture / Unknown 01/14/2025 4:28 PM EST 01/14/2025 4:28 PM EST Narrative [facility] - 01/14/2025 6:35 PM EST The Siemens Advia Centaur Chemiluminescent Immunoassay is used. Results obtained with different assay methods or kits cannot be used interchangeably. Results cannot be interpreted as absolute evidence of the presence or absence of malignant disease. Rubia Melendez CONSTRUCTION EQUIPMENT MECHANIC HELPER LAB BLOOD ORDERABLES Kathy l Result [facility] [address] [place] [address], [place] [phone] * (ABNORMAL) Lipid panel (06/30/2024) LDL/HDL Ratio 5(A) 0 - 4 Triglycerides 201(A) 0 - 150 mg/dL Cholesterol 212(A) 0 - 200 mg/dL HDL 45 >=40 mg/dL LDL Cholesterol 127(A) 0 - 100 mg/dL Blood Venous blood specimen / Unknown Historical Provider LAB BLOOD ORDERABLES Kathy l Result * Colonoscopy (08/01/2017) Colonoscopy no interpretation , abstracted Anatomical Region Laterality Modality Other Historical Provider MD HEALTH MAINTENANCE Final Result from Last 3 Months or Most Recently Relevant to Health Maintenance Insurance [employer] MEDICARE Care Teams Emergency Planning And Response Manager Relationship Specialty Start Date End Date Donna Tirado PA 175 [facility] [address] [place] [address] PCP - General Internal Medicine 04/06/20
[2025-01-19 14:11] LABS: Appearance Urine Clear; Color Urine Dark Yellow; Glucose Urine UA Negative (Negative); Leukocyte Esterase Urine Negative (Negative); Nitrite Urine Negative (Negative); PH 5.5 (5.0-9.0); Specific Gravity - Urine >= 1.030 (1.005-1.025); Urine Blood Negative (Negative); Urine Ketones Trace mg/dL (Negative); Urine Protein Trace mg/dL (Neg-Trace)
[2025-01-19 14:22] LABS: Alanine Aminotransferase 18 U/L (0-40); Albumin Level 4.1 g/dL (3.5-5.0); Alkaline Phosphatase 85 U/L (39-117); Anion Gap 9 (12-20); Aspartate Amino Transferase 23 U/L (5-37); Blood Urea Nitrogen 9 mg/dL (9-16); Calcium 9.1 mg/dL (8.4-10.2); Carbon Dioxide 27 mmol/L (22-29); Chloride 112 mmol/L (96-108); Cholesterol 191 mg/dL (<200); Estimated Glomerular Filt Rate 57; Glucose Fasting 95 mg/dL (60-99); HDL Cholesterol 41 mg/dL (>40); LDL Cholesterol Calculated 121 mg/dL (<100); Potassium 4.7 mmol/L (3.3-5.1); Sodium 143 mmol/L (135-145); Total Protein 7.4 g/dL (6.5-8.0); Triglycerides 147 mg/dL (<150)
[2025-01-19 14:28] LABS: TSH reflex Free T4 1.05 uIU/mL (0.32-4.0); Vitamin D 25-OH Total 7.8 ng/mL (>30)
[2025-01-19 14:41] LABS: Folate 5.9 ng/mL (> or = 4.0); Vitamin B12 211 pg/mL (200-900)
[2025-01-19 14:46] LABS: Microalbum/Creatinine Ratio Ur 18.1 ug/mg cr (<30)
[2025-01-22 23:48] LABS: PSA, Ultra Sensitive 6.71 ng/mL
== END 2025-01-19 12:24 | disposition home or self-care (01) ==
LOC: HO.LAB 12:23
PROVIDERS: PCP Nurse Practitioner Family; Visit Provider Nurse Practitioner Family
DX: Z00.00 Encounter for general adult medical examination without abnormal findings (principal); Z12.5 Encounter for screening for malignant neoplasm of prostate; Z13.6 Encounter for screening for cardiovascular disorders
CPT/HCPCS: 36415; 80053; 80061; 81003; 82043; 82306; 82570; 82607; 82746; 84153; 84443; 85025

== ENCOUNTER → 2025-02-26 13:20 | Outpatient (REF) | payer MEDICARE, SELFPAY ==
--- NOTE | 2025-02-26 13:24 | HM_ITS ---
* Total monitoring time 7 days. * Underlying rhythm is sinus with an average rate of 70/Min. * Supraventricular ectopy with a burden of 2.6%. Very brief runs. * Rare ventricular ectopy. * No significant pauses or high-grade AV blocks. * No patient markers or diary events. MTDD
--- OUTSIDE RECORDS SUMMARY | 2025-02-26 16:18 | XMS_ITS | Clinical Summary ---
Author Organization [facility] Address [address] [place] [address] Phone Care Team Providers Care Order Packer Or Packager Name Role Phone Andry Cohen MD Primary Care Provider [phone] Allergies Active Allergy Reactions Criticality Noted Date [...] 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 201307/19/2023 Immunizations Immunization Administration Dates Next Due Influenza Split High [...] Visit [facility] [address] [place] [address] Denis Mathur MD [address] [facility] [address] [place] [address] Health Maintenance Due Date Last Done Comments Pneumococcal Vaccine: 50+ Ye ars (1 of 2 - PCV) 1974 Colorectal Cancer Screening: Annual FOBT 2004 Colorectal Cancer Screening: Colonoscopy 2004 Colorectal Cancer Screening: Sigmoidoscopy 2004 Influenza Vaccine (Season Ended) 2025 08/09/20 22 Hepatitis B Vaccine Aged Out No longe r eligible based on patient's age to complete this topic Insurance [facility] Medicare [facility] Medicare Member Subscriber Plan / Payer (Ef fective 2020-) Name:Octavio Miranda Relation to Subscriber:Self Name:Ruben Octavio Payer ID:[id number] (NAIC) Type:Not on file Address: [place] [phone] Care Teams Order Packer Or Packager Relationship Specialty Start Date End Date Andry Cohen MD [address] [place] [id number] PCP - General Internal Medicine 07/26/23
--- OUTSIDE RECORDS SUMMARY | 2025-02-26 16:18 | XMS_ITS | Clinical Summary ---
Author Organization 175 [facility] Address [address] [place] [address] Phone Care Team Providers Care Director Pharmacology Name Role Phone Donna Tirado Primary Care [...] Take 81 mg by mouth daily. Active methylphenidate 36 mg ER tablet Take 1 tablet (36 mg total) by mouth 2 (two) times a day. Max Daily Amount: 72 mg 56 tablet 12/06/2024 Active escitalopram (LEXAPRO) 10 mg tablet Take 1 tablet (10 mg total) by mouth 1 (one) time each day. 90 each 1 01/26/2025 07/25/20 25 Active Active Problems Problem Noted Date Diagnosed Date CKD (chronic kidney disease) , stage III (CMS/HCC V24, CMS/HCC V28) 08/13/2024 Prostate cancer (CMS/HCC V24, CMS/HCC V28) 10/18 Overview (08/13/2024): adenocarcinoma via bx left prostate dr. 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 Tinea cruris 08/10/2015 Insomnia 02/09/2015 Polyp of sigmoid colon 02/09/2015 Anxiety and depression 02/03/2015 Tubular adenoma 07/12/2011 Overview (08/13/2024): Comments: dr malloy Immunizations Name Administration Dates Next Due Influenza trivalent, 0.5mL ( Fluzone High-dose) 65yo and older 08/09/2022 [employer] SARS-CoV-2 COVID-19, mRNA, LNP-S, preservative free 02/10/2022,03/04/2021,02/10/2021 Surgical History Surgery Date Site/Laterality Comments KNEE ARTHROSCOPY -2005 Left PROCEDURE: [place] ARTHROSCOPY AID TX SPINE&/FX KNEE W/O FIXJ OTHER SURGICAL HISTORY -2013 PROCEDURE: [place] CURTG/CAUT ANAL FISSURE W/DILAT SPHNCTR SPX 1ST OTHER SURGICAL HISTORY 07/15/2019 Right PROCEDURE: [place] LAPAROSCOPY NEPHRECTOMY W/PARTIAL URETERECT; COMMENT: donated - done [facility] Dr[facility] Stephenson Medical History Medical History [...] CKD (chronic kidney disease) , stage III (CMS/HCC V24, CMS/HCC V28) DX:CKD (chronic kidney disease), stage III (HCC) Prostate cancer (CMS/HCC V24 , CMS/HCC V28) 10/18/2021 DX:Prostate cancer (HCC); CO MMENT: adenocarcinoma via bx left prostate dr. Olivier [...] 02/10/2022, 03/04/2021, Additional history exists Influenza Vaccine (Season Ended) 2025 08/09/2022 Colorectal Cancer Screening: Colonoscopy 08/01/2027 08/01/2017 Cholesterol Screening (Lipid Panel) 06/30/2029 06/30/2024, 06/30/2024 RSV Immunization Adult Patients (1 - 1-dose 75+ series) 2030 HIB [...] age to complete this topic Meningococcal B Vaccine Aged Out No l onger eligible based on patient's age to complete [...] 4:28 PM EST Malignant neoplasm of prostate ([facility] V24, [facility] V28) EXTERNAL CLINICAL LAB 01/13/2025 LIPID PANEL Routine 06/30/2024 COLONOSCOPY Routine 08/01/2017 from Last 3 Months or Most Recently Relevant to Health Maintenance Results * (ABNORMAL) Prostate specific antigen screen (01/14/2025 4:28 PM EST) PSA 5.39(H) 0.00 - 4.00 ng/mL LAB CHEMISTRY METHOD 01/14/2025 6:35 PM EST [facility] Blood Venous blood specimen / Unknown Venipuncture / Unknown 01/14/2025 4:28 PM EST 01/14/2025 4:28 PM EST Narrative [facility] - 01/14/2025 6:35 PM EST The Siemens Advia Changelightaur Chemiluminescent Immunoassay is used. Results obtained with different assay methods or kits cannot be used interchangeably. Results cannot be interpreted as absolute evidence of the presence or absence of malignant disease. Rubia Melendez SECURITY AND PRIVACY CONSULTANT LAB BLOOD ORDERABLES Kathy l Result [facility] ([facility]) [facility] [address] [place] [address], * External clinical lab (01/13/2025) Provider Onbase MD LAB BLOOD ORDERABLES Final Re sult * (ABNORMAL) Lipid panel (06/30/2024) LDL/HDL Ratio 5(A) 0 - 4 Triglycerides 201(A) 0 - 150 mg/dL Cholesterol 212(A) 0 - 200 mg/dL HDL 45 >=40 mg/dL LDL Cholesterol 127(A) 0 - 100 mg/dL Blood Venous blood specimen / Unknown Historical Provider MD LAB BLOOD ORDERABLES Kathy l Result * Colonoscopy (08/01/2017) Colonoscopy no interpretation , abstracted Anatomical Region Laterality Modality Other Historical Provider MD HEALTH MAINTENANCE Final Result from Last 3 Months or Most Recently Relevant to Health Maintenance Insurance [employer] MEDICARE Care Teams Director Pharmacology Relationship Specialty Start Date End Date Donna Tirado PA [address] [address] PCP - General Internal Medicine 04/06/20
== END ==
LOC: HO.CARD 13:20
PROVIDERS: Visit Provider Psychiatry & Neurology Neurology
DX: I63.50 Cerebral infarction due to unspecified occlusion or stenosis of unspecified cerebral artery (principal); I49.1 Atrial premature depolarization
CPT/HCPCS: 93242

== ENCOUNTER → 2025-02-26 13:24 | Outpatient (BNV) | payer MEDICARE, SELFPAY | PROVIDERS: Visit Provider Internal Medicine | DX: I47.10 Supraventricular tachycardia, unspecified (principal) | CPT/HCPCS: 93244 ==

== ENCOUNTER 2025-03-06 10:23 | Outpatient (AMB) | payer MEDICARE, SELFPAY ==
--- NOTE | 2025-03-06 10:21 | A.OFFPC_ITS ---
Intake Visit Reasons: Telehealth 2-3 wks labs review Intake Note: patient here for 2-3 wks telehealth follow up on labs Sand Caster Apprentice Required: No Allergies No Known Allergies Allergy (Verified 03/06/25 10:21) Tobacco use date assessed: 03/06/25 Fall risk assessment: No Falls in past year Last assessed Fall Risk: 03/06/25 Dental Screening Dental Screen Date: 03/06/25 Did you have a dental visit in the last 12 months?: Yes Did you have a dental problem in the last 6 months where you did not have access to dental care?: No Was dental information given to patient?: Patient has dentist HPI HPI Comments History of Present Illness Details 69-year-old male presents for telehealth visit for review of recent lab results. He admits to taking his medications as prescribed without adverse reactions. He offers no complaints and denies acute symptoms at the time. [facility] Medical History (Updated 03/06/25 @ 10:50 by Damián Palacios CNP) Depression Psoriasis Memory loss Headache Prostate cancer Kidney disease Stroke (cerebrum) Surgical History (Updated 01/01/25 @ 13:31 by Heena Ngo MA) History of kidney donation Family History (Updated 01/01/25 @ 16:32 by Heena Ngo MA) Paternal Grandfather No problems noted. Mother FH: mental illness Father FH: mental illness Social History (Updated 01/01/25 @ 13:32 by Heena Ngo MA) Housing: Apartment Patient Tobacco Use Status: Never used Tobacco e-Cigarette/Vaping Use: Currently Using Second Hand Smoke Exposure: No Substance Use Type: Marijuana service: No Current occupational status: retired Current occupational exposures/hazards: No Cognitive needs: No Hearing needs: No Vision needs: Yes Questionnaire Thrive Questionnaire Date Thrive assessed: 01/01/25 PITER-7 AMB Questionnaire PITER-7 Date PITER - 7 assessed: 01/01/25 Source: Developed by Drs. Brando Gee, Phyllis Alberts, James Turk and colleagues, with an educational edgardo from [employer]. Review of Systems Const Details: Denies chills, Denies fatigue, Denies fever(s), Denies headache(s) and Denies weakness Cardiac Denies chest pain, Denies claudication, Denies leg edema, Denies lightheadedness, Denies palpitations, Denies dyspnea, Denies dyspnea on exertion, Denies orthopnea and Denies other (Loss of consciousness) Resp Denies cough, Denies excessive phlegm production, Denies dyspnea, Denies dyspnea on exertion, Denies snoring and Denies wheezing Physical exam (Primary Care) Tobacco/Smoking Status: Tobacco use Status Tobacco use date assessed 03/06/25 03/06/25 10:23 Patient Tobacco Use Status Never used Tobacco 03/06/25 10:23 e-Cigarette/Vaping Use Currently Using 03/06/25 10:23 Thrive Assessment: Date of Thrive Assessment Date Thrive assessed 01/01/25 03/06/25 10:23 Const Other: Patient is alert and oriented x3 Telehealth Telehealth Telehealth Platform: Telephone Location of provider rendering services: practice address Location of patient: address on file Patient Identification confirmed using: Name, : Yes Telehealth method: voice only Patient verbally consented to treatment: Yes Patient verbally consented to billing insurance company: Yes Patient informed of any privacy concerns related to visit: Yes Coding Level of Care Code Tele Est Pt Level 3 (45033) Diagnoses Vitamin D deficiency E55.9 Elevated LDL cholesterol level E78.00 Time Spent (min) 10 Assessment & Plan Assessment & Plan (1) Vitamin D deficiency: Code(s): E55.9 - Vitamin D deficiency, unspecified Category: Medical Plan: Recent vitamin-D level is significantly low, 7.8. He was prescribed vitamin D3 1250 mcg weekly which he has been taking as prescribed; he has 2 doses left. Encouraged to continue course of vitamin D3 1250 mcg weekly and start taking vitamin-D 3 1000 units daily which is ordered today. Perform vitamin D3 blood work before next visit. Follow-up for a telehealth visit for anxiety and vitamin-D deficiency in 1 month. Return sooner with symptoms or concerns. Verbalized understanding and agreed with the treatment plan. (2) Elevated LDL cholesterol level: Code(s): E78.00 - Pure hypercholesterolemia, unspecified Category: Medical Plan: Recent LDL level is slightly elevated, 121. Advised to limit foods high in saturated fat and avoid foods high in trans fat. Routine exercise encouraged. Will recheck lipid panel levels in 2 months. Verbalized understanding and agreed with treatment plan. Orders: Orders Vitamin D 25-OH Total Today E55.9 - Vitamin D deficiency, unspecified Medications: New cholecalciferol (vitamin D3) 25 mcg PO DAILY 90 days 90 tabs 3RF
--- OUTSIDE RECORDS SUMMARY | 2025-03-06 10:51 | XMS_ITS | Clinical Summary ---
Author Organization [facility] Address [address] [place] [address] Phone Care Team Providers Care Stylist Apprentice Name Role Phone Andry Cohen MD Primary Care Provider [phone] Allergies Active Allergy Reactions Criticality Noted Date [...] Visit [facility] [address] [place] [address] Denis Mathur MD [address] [facility] [address] [place] [address] Health Maintenance Due Date Last Done Comments Pneumococcal Vaccine: 50+ Ye ars (1 of 2 - PCV) 1974 Colorectal Cancer Screening: Annual FOBT 2004 Colorectal Cancer Screening: Colonoscopy 2004 Colorectal Cancer Screening: Sigmoidoscopy 2004 Influenza Vaccine (Season Ended) 2025 08/09/20 22 Hepatitis B Vaccine Aged Out No longe r eligible based on patient's age to complete this topic Insurance [facility] Medicare [facility] Medicare Member Subscriber Plan / Payer (Ef fective 2020-) Name:Octavio Miranda Relation to Subscriber:Self Name:Ruben Octavio Payer ID:[id number] (NAIC) Type:Not on file Address: [place] [phone] Care Teams Stylist Apprentice Relationship Specialty Start Date End Date Andry Cohen MD [address] [place] [id number] PCP - General Internal Medicine 07/26/23
--- OUTSIDE RECORDS SUMMARY | 2025-03-06 10:51 | XMS_ITS | Clinical Summary ---
Author Organization 175 [facility] Address [address] [place] [address] Phone Care Team Providers Care Financial Investment Adviser Name Role Phone Donna Tirado Primary Care Provider + Allergies Active Allergy Reactions Criticality Noted Date Comments Atorvastatin Pain 04/08/2009 Myalgia and Joint Pain Medications ketoconazole (NIZORAL) 2 % shampoo USE TO SHAMPOO HAIR/SCALP DIRECTED 10/27/20 11 Active cholecalciferol (VITAMIN D-3) 25 mcg (1,000 unit) capsule Take 1 Cap by mouth daily. Active aspirin 81 mg chewable tablet Take 81 mg by mouth daily. Active methylphenidate 36 mg ER tablet Take 1 tablet (36 mg total) by mouth 2 (two) times a day. Max Daily Amount: 72 mg 56 tablet 12/06/19 25 Active escitalopram (LEXAPRO) 10 mg tabletIndicatio ns:Anxiety disorder, unspecified TAKE 1 TABLET BY MOUTH 1 TIME EACH DAY. 90 tablet 1 03/02/20 25 Active escitalopram (LEXAPRO) 10 mg tablet Take 1 tablet (10 mg total) by mouth 1 (one) time each day. 90 each 1 01/27/20 25 025 Discontinued Active Problems Problem Noted Date Diagnosed Date CKD (chronic kidney disease) , stage III (CMS/HCC V24, CMS/HCC V28) 08/13/2024 Prostate cancer (CMS/HCC V24, CMS/[facility] V28) 10/18 Overview (08/13/2024): adenocarcinoma via bx [...] ( Fluzone High-dose) 65yo and older 08/09/2022 [employer] SARS-CoV-2 COVID-19, mRNA, LNP-S, preservative free 02/10/2022,03/04/2021,02/10/2021 Surgical History Surgery Date Site/Laterality Comments KNEE ARTHROSCOPY -2005 Left PROCEDURE: [place] ARTHROSCOPY AID TX SPINE&/FX KNEE W/O FIXJ OTHER SURGICAL HISTORY -2013 PROCEDURE: [place] CURTG/CAUT ANAL FISSURE W/DILAT SPHNCTR SPX 1ST OTHER SURGICAL HISTORY 07/15/2019 Right PROCEDURE: [place] LAPAROSCOPY NEPHRECTOMY W/PARTIAL URETERECT; COMMENT: donated - done [facility] Dr. 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 DX:Neuroma, Mo rton's Polyp of sigmoid colon 02/09/2015 DX:Polyp of sigmoid colon Psoriasis 11/07/2016 DX:Psoriasis Tinea cruris 08/10/2015 DX:Tinea cruris Vitamin D deficiency 02/16/2017 DX:Vitamin D deficiency Insomnia 02/09/2015 DX:Insomnia History of right nephrectomy 07/15/2019 DX: History of right nephrectomy Anxiety and depression 02/03/2015 DX:Anxiet y and depression CKD (chronic kidney disease) , stage III ([facility] V24, [facility] V28) DX:CKD (chronic kidney disease), stage III [...] 4:28 PM EST Malignant neoplasm of prostate (CMS/HCC V24, CMS/HCC V28) EXTERNAL CLINICAL LAB 01/13/2025 LIPID PANEL Routine 06/30/2024 COLONOSCOPY Routine 08/01/2017 from Last 3 Months or Most Recently Relevant to Health Maintenance Results * (ABNORMAL) Prostate specific antigen screen (01/14/2025 4:28 PM EST) PSA 5.39(H) 0.00 - 4.00 ng/mL LAB CHEMISTRY METHOD 01/14/2025 6:35 PM EST [facility] ([facility] Blood Venous blood specimen / Unknown Venipuncture / Unknown 01/14/2025 4:28 PM EST 01/14/2025 4:28 PM EST [facility]ative [facility] - 01/14/2025 6:35 PM EST The Siemens Advia Centaur Chemiluminescent Immunoassay is used. Results obtained with different assay methods or kits cannot be used interchangeably. Results cannot be interpreted as absolute evidence of the presence or absence of malignant disease. Rubia Melendez [employer] LAB BLOOD ORDERABLES Kathy l Result [facility] ([facility]) [facility] [address] [place] [address], * External clinical lab (01/13/2025) Provider Onbase [...] ORDERABLES Kathy l Result * Colonoscopy (08/01/2017) Pathologist [facility] Colonoscopy no interpretation , abstracted Anatomical Region Laterality Modality Other Historical Provider HEALTH MAINTENANCE Final Result from Last 3 Months or Most Recently Relevant to Health Maintenance Insurance [facility] [place] [phone] Care Teams Financial Investment Adviser Relationship Specialty Start Date End Date Donna Tirado PA [address] [address] PCP - General Internal Medicine 04/06/20
== END 2025-03-06 11:03 | disposition home or self-care (01) ==
LOC: HO.HMCFM 10:23
PROVIDERS: PCP Nurse Practitioner Family; Visit Provider Nurse Practitioner Family
DX: E55.9 Vitamin D deficiency, unspecified (principal); E78.00 Pure hypercholesterolemia, unspecified

== ENCOUNTER → 2025-03-06 10:23 | Outpatient (BNVA) | payer MEDICARE, SELFPAY | PROVIDERS: PCP Nurse Practitioner Family; Visit Provider Nurse Practitioner Family | DX: Z13.89 Encounter for screening for other disorder (principal) ==